=== PATIENT | female | born 1990 | race African-American/Black ===

== ENCOUNTER 2020-02-25 15:07 | Emergency (ER) | payer MEDICAID, OTHER ==
[2020-02-26 13:50] LABS: SARS-CoV-2 MS2 Positive; SARS-CoV-2 N Gene Negative; SARS-CoV-2 S Gene Negative; SARS-CoV-2 orf1ab Negative
== END 2020-02-25 16:12 | disposition home or self-care (01) ==
LOC: NAV ERS 15:07
DX: Z20.828 Contact with and (suspected) exposure to other viral communicable diseases (principal)
CPT/HCPCS: 87635; 99283; U0003